=== PATIENT | male | born 1965 | race Caucasian/White ===

== ENCOUNTER 2023-03-03 09:28 | Outpatient (REF) | payer BC, SELFPAY ==
[2023-03-03 14:47] LABS: Hemoglobin A1C 5.8 % (<5.7)
[2023-03-03 14:53] LABS: ALT 55 U/L (16-63); AST 28 U/L (15-37); Albumin 3.6 g/dL (3.4-5.0); Alkaline Phosphatase 77 U/L (46-116); Anion Gap 5.1 mmol/L (3-11); BUN 15 mg/dL (7-18); Bilirubin, Total 0.4 mg/dL (0.2-1.0); CO2 29.9 mmol/L (21.0-32.0); CREATININE 0.9 mg/dL (0.70-1.30); Calcium 9.3 mg/dL (8.5-10.1); Calculated LDL 126 mg/dL (<100); Chloride 104 mmol/L (98-107); Cholesterol 200 mg/dL (<200); Glucose 102 mg/dL (74-106); HDL Cholesterol 58 mg/dL (40-60); Potassium 4.4 mmol/L (3.5-5.1); Sodium 139 mmol/L (136-145); Total Protein 7.8 g/dL (6.4-8.2); Triglyceride 81 mg/dL (<150)
== END 2023-03-03 09:29 | disposition home or self-care (01) ==
LOC: NCHCN 09:28
PROVIDERS: Visit Provider Family Medicine
DX: Z00.00 Encounter for general adult medical examination without abnormal findings (principal); E78.00 Pure hypercholesterolemia, unspecified; Z13.1 Encounter for screening for diabetes mellitus
CPT/HCPCS: 80053; 80061; 83036

== ENCOUNTER 2024-03-08 16:17 | Outpatient (REF) | payer BC, SELFPAY ==
[2024-03-08 15:33] LABS: Hemoglobin A1C 5.7 % (<5.7)
[2024-03-08 15:41] LABS: ALT 54 U/L (16-63); AST 30 U/L (15-37); Albumin 3.9 g/dL (3.4-5.0); Alkaline Phosphatase 72 U/L (46-116); Anion Gap 8.1 mmol/L (3-11); BUN 15 mg/dL (7-18); Bilirubin, Total 0.5 mg/dL (0.2-1.0); CO2 27.9 mmol/L (21.0-32.0); CREATININE 0.9 mg/dL (0.70-1.30); Calcium 9.4 mg/dL (8.5-10.1); Calculated LDL 143 mg/dL (<100); Chloride 104 mmol/L (98-107); Cholesterol 231 mg/dL (<200); Estimated GFR 98.38 (mL/min/1.73m2); Glucose 95 mg/dL (74-106); HDL Cholesterol 70 mg/dL (40-60); Potassium 4.3 mmol/L (3.5-5.1); Sodium 140 mmol/L (136-145); Total Protein 7.6 g/dL (6.4-8.2); Triglyceride 90 mg/dL (<150)
== END 2024-03-08 16:18 | disposition home or self-care (01) ==
LOC: NCHCN 16:17
PROVIDERS: Visit Provider Family Medicine
DX: E78.5 Hyperlipidemia, unspecified (principal); R73.03 Prediabetes
CPT/HCPCS: 80053; 80061; 83036

== ENCOUNTER 2025-04-09 18:40 | Outpatient (REF) | payer BC, SELFPAY ==
[2025-04-12 19:15] LABS: Histoplasma/Blastomyces Result Not Detected (NotDetected); Histoplasma/Blastomyces Value Not Detected
== END 2025-04-09 18:41 | disposition home or self-care (01) ==
LOC: NCHCN 18:40
PROVIDERS: Visit Provider Nurse Practitioner Family
DX: T75.89XA Other specified effects of external causes, initial encounter (principal)
CPT/HCPCS: 87449

== ENCOUNTER 2025-05-23 11:09 | Outpatient (REF) | payer BC, SELFPAY ==
[2025-05-23 15:23] LABS: ALT 45 U/L (16-63); AST 27 U/L (15-37); Albumin 3.6 g/dL (3.4-5.0); Alkaline Phosphatase 69 U/L (46-116); Anion Gap 7.5 mmol/L (3-11); BUN 18 mg/dL (7-18); Bilirubin, Total 0.4 mg/dL (0.2-1.0); CO2 28.5 mmol/L (21.0-32.0); Calcium 9.2 mg/dL (8.5-10.1); Calculated LDL 69 mg/dL (<100); Chloride 104 mmol/L (98-107); Cholesterol 156 mg/dL (<200); Estimated GFR 104.83 (mL/min/1.73m2); Glucose 100 mg/dL (74-106); HDL Cholesterol 58 mg/dL (>or=40); Potassium 4.2 mmol/L (3.5-5.1); Sodium 140 mmol/L (136-145); Total Protein 7.1 g/dL (6.4-8.2); Triglyceride 146 mg/dL (<150)
[2025-05-23 16:00] LABS: Hemoglobin A1C 5.5 % (<5.7)
== END 2025-05-23 11:10 | disposition home or self-care (01) ==
LOC: NCHCN 11:09
PROVIDERS: Visit Provider Family Medicine
DX: R73.03 Prediabetes (principal); E78.00 Pure hypercholesterolemia, unspecified
CPT/HCPCS: 80053; 80061; 83036